=== PATIENT | female | born 1975 | race American Indian/Alaskan Native ===

== ENCOUNTER 2017-10-29 15:23 | Emergency (ER) | payer OTHER ==
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
[2017-10-30] MEDS ORDERED: MOTRIN ONE (06:47)
[2017-10-30] MEDS ORDERED: MOTRIN PO ONE (06:47)
[2017-10-30] MEDS ORDERED: BOOSTRIX IM ONE (06:55)
[2017-10-30] MEDS ORDERED: FUL-GLO OP ONE (06:55)
[2017-10-30] MEDS ORDERED: TETRACAINE 0.5% OU ONE (06:56)
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
[2017-10-30 08:44] VITALS: BP 142/74
== END 2017-10-30 08:43 | disposition home or self-care (01) ==
LOC: ED 15:23
DX: S05.02XA Injury of conjunctiva and corneal abrasion without foreign body, left eye, initial encounter (principal); S16.1XXA Strain of muscle, fascia and tendon at neck level, initial encounter; T15.92XA Foreign body on external eye, part unspecified, left eye, initial encounter; F17.200 Nicotine dependence, unspecified, uncomplicated; F12.10 Cannabis abuse, uncomplicated; M54.5 Low back pain; V49.59XA Passenger injured in collision with other motor vehicles in traffic accident, initial encounter; Y93.89 Activity, other specified; Y92.89 Other specified places as the place of occurrence of the external cause; Y99.8 Other external cause status
CPT/HCPCS: 70480; 90471; 90715